=== PATIENT | male | born 1950 | race Caucasian/White ===

== ENCOUNTER 2021-05-13 21:58 | Emergency (ER) | payer OTHER ==
[2021-05-13 22:08] VITALS: BP 136/85; PULSE 82; TEMP 98; BMI 12.0
== END 2021-05-13 23:06 | disposition home or self-care (01) ==
LOC: FER 21:58
DX: K59.00 Constipation, unspecified (principal)
CPT/HCPCS: 74019-TC-FY; 99283-25

== ENCOUNTER 2024-03-10 06:39 | Inpatient (IN) | payer OTHER ==
[2024-03-10 08:14] LABS: BASO % 1.2 % (0-2.0); EOS % 0.7 % (0-4.5); HEMATOCRIT 49.9 % (35.4-49); HEMOGLOBIN 17.8 GM/dL (11.7-16.9); LYMPH % 27.6 % (8-40); MCH 32.8 pg (25.7-33.7); MCHC 35.8 g/dl (32.0-35.9); MEAN CELL VOLUME 91.8 fl (80-96); MONO % 12.1 % (3.8-10.2); NEUT % 58.4 % (42.8-82.8); PLATELET COUNT 201 10^3/uL (134-434); RBC 5.44 M/mm3 (4.00-5.60); RDW 13.5 % (11.9-15.9); WHITE BLOOD COUNT 2.9 K/mm3 (4.0-10.0)
[2024-03-10 08:31] LABS: POTASSIUM 3.8 mmol/L (3.5-5.1)
[2024-03-10 08:33] LABS: CALCIUM 8.7 mg/dL (8.5-10.1)
[2024-03-10 08:34] LABS: ALBUMIN 3.6 g/dl (3.4-5.0); BLOOD UREA NITROGEN 25.4 mg/dL (7-18); MAGNESIUM 1.5 mg/dL (1.8-2.4)
[2024-03-10 08:37] LABS: CREATININE 1.6 mg/dL (0.55-1.3)
[2024-03-10 08:39] LABS: BILIRUBIN,TOTAL 1.6 mg/dL (0.2-1)
[2024-03-10 08:43] LABS: INR 1.84 (0.83-1.09); PROTHROMBIN TIME (PATIENT) 20.8 SEC (9.7-13.0)
[2024-03-10 09:53] LABS: PH,URINE 5.5 (5.0-8.0); URINE APPEARANCE CLEAR; URINE BILIRUBIN NEGATIVE (NEGATIVE); URINE COLOR YELLOW; URINE GLUCOSE (UA) NEGATIVE (NEGATIVE); URINE KETONE NEGATIVE (NEGATIVE); URINE LEUK ESTERASE NEGATIVE (NEGATIVE); URINE NITRITE NEGATIVE (NEGATIVE); URINE PROTEIN NEGATIVE (NEGATIVE)
[2024-03-10 13:26] VITALS: BMI 24.7
[2024-03-10] MEDS: WARFARIN NA 2 MG TABLET PO SCH (17:18)
[2024-03-10] MEDS: MAGNESIUM SULF 50% (8.12 MEQ/2 ML-1 GM VIAL) IVPB ONE (22:34)
[2024-03-10] MEDS: ASPIRIN 81 MG CHEWABLE TABLETS PO SCH (22:38)
[2024-03-10] MEDS: MAGNESIUM 2GM/50ML STERILE WATER IVPB IVPB ONE (22:38)
[2024-03-11 07:10] LABS: PROTHROMBIN TIME (PATIENT) 22.5 SEC (9.7-13.0)
[2024-03-11 07:57] LABS: HEMATOCRIT 48.1 % (35.4-49); HEMOGLOBIN 17.1 GM/dL (11.7-16.9); MCH 32.9 pg (25.7-33.7); MCHC 35.4 g/dl (32.0-35.9); MEAN CELL VOLUME 92.8 fl (80-96); MEAN PLT VOLUME 8.3 fl (7.5-11.1); PLATELET COUNT 185 10^3/uL (134-434); RBC 5.18 M/mm3 (4.00-5.60); RDW 13.4 % (11.9-15.9); WHITE BLOOD COUNT 4.1 K/mm3 (4.0-10.0)
[2024-03-11] MEDS: ATORVASTATIN CA 80 MG TABLET (FP) PO SCH (21:49)
[2024-03-12 08:34] LABS: INR 2.16 (0.83-1.09); PROTHROMBIN TIME (PATIENT) 24.3 SEC (9.7-13.0)
[2024-03-12 08:51] LABS: POTASSIUM 4.3 mmol/L (3.5-5.1)
[2024-03-12 08:59] LABS: CREATININE 1.6 mg/dL (0.55-1.3)
[2024-03-12] MEDS ORDERED: WARFARIN NA 1 MG TABLET PO ONE (17:30)
[2024-03-12] MEDS: WARFARIN NA 2 MG TABLET PO ONE (18:07)
[2024-03-12] MEDS: WARFARIN NA 5 MG TABLET PO SCH (18:08)
[2024-03-12 19:30] LABS: MAGNESIUM 1.9 mg/dL (1.8-2.4)
[2024-03-12 19:34] LABS: PHOSPHOROUS 2.5 mg/dL (2.5-4.9)
[2024-03-13 08:41] LABS: POTASSIUM 4.6 mmol/L (3.5-5.1)
[2024-03-13 08:44] LABS: CALCIUM 8.8 mg/dL (8.5-10.1)
[2024-03-13 08:48] LABS: CREATININE 1.5 mg/dL (0.55-1.3)
[2024-03-13 08:50] LABS: BILIRUBIN,TOTAL 2.1 mg/dL (0.2-1); TOT PROT 6.2 g/dl (6.4-8.2)
[2024-03-13 08:57] LABS: BASO % 0.9 % (0-2.0); EOS % 4.2 % (0-4.5); HEMATOCRIT 48.9 % (35.4-49); LYMPH % 24.2 % (8-40); MCH 32.4 pg (25.7-33.7); MCHC 34.9 g/dl (32.0-35.9); MEAN PLT VOLUME 8.6 fl (7.5-11.1); MONO % 13.8 % (3.8-10.2); NEUT % 56.9 % (42.8-82.8); PLATELET COUNT 180 10^3/uL (134-434); RBC 5.26 M/mm3 (4.00-5.60); RDW 13.4 % (11.9-15.9); WHITE BLOOD COUNT 3.4 K/mm3 (4.0-10.0)
[2024-03-13] MEDS: LOSARTAN POTASSIUM 25 MG TABLET PO SCH (10:53)
[2024-03-13] MEDS: WARFARIN NA 2 MG TABLET PO SCH (17:37)
[2024-03-14 08:14] LABS: BASO % 0.8 % (0-2.0); EOS % 3.7 % (0-4.5); HEMOGLOBIN 16.8 GM/dL (11.7-16.9); LYMPH % 22.6 % (8-40); MCH 32.9 pg (25.7-33.7); MEAN PLT VOLUME 8.4 fl (7.5-11.1); MONO % 12.5 % (3.8-10.2); NEUT % 60.4 % (42.8-82.8); PLATELET COUNT 165 10^3/uL (134-434); RDW 13.1 % (11.9-15.9); WHITE BLOOD COUNT 3.8 K/mm3 (4.0-10.0)
[2024-03-14 08:20] LABS: INR 2.13 (0.83-1.09)
[2024-03-14 08:33] LABS: POTASSIUM 4.5 mmol/L (3.5-5.1)
[2024-03-14 08:36] LABS: BLOOD UREA NITROGEN 29.8 mg/dL (7-18); CALCIUM 8.8 mg/dL (8.5-10.1)
[2024-03-14 08:40] LABS: CREATININE 1.5 mg/dL (0.55-1.3)
[2024-03-14 08:41] LABS: BILIRUBIN,TOTAL 2.1 mg/dL (0.2-1); TOT PROT 6.2 g/dl (6.4-8.2)
[2024-03-14 20:48] LABS: INR 2.05 (0.83-1.09); PROTHROMBIN TIME (PATIENT) 23.1 SEC (9.7-13.0)
[2024-03-15 08:12] LABS: HEMATOCRIT 47.3 % (35.4-49); HEMOGLOBIN 16.9 GM/dL (11.7-16.9); MCH 33.1 pg (25.7-33.7); MCHC 35.7 g/dl (32.0-35.9); MEAN CELL VOLUME 92.9 fl (80-96); MEAN PLT VOLUME 8.6 fl (7.5-11.1); PLATELET COUNT 159 10^3/uL (134-434); RDW 13.5 % (11.9-15.9); WHITE BLOOD COUNT 3.3 K/mm3 (4.0-10.0)
[2024-03-15 08:31] LABS: POTASSIUM 4.5 mmol/L (3.5-5.1)
[2024-03-15 08:33] LABS: CALCIUM 8.4 mg/dL (8.5-10.1)
[2024-03-15 08:34] LABS: BLOOD UREA NITROGEN 32.2 mg/dL (7-18); MAGNESIUM 1.6 mg/dL (1.8-2.4)
[2024-03-15 08:37] LABS: BILIRUBIN,TOTAL 1.9 mg/dL (0.2-1); CREATININE 1.5 mg/dL (0.55-1.3); PHOSPHOROUS 2.1 mg/dL (2.5-4.9)
[2024-03-15 08:39] LABS: TOT PROT 6.1 g/dl (6.4-8.2)
[2024-03-15] MEDS: NAPH,MB-DB/K PH,MBDB POWDER PACKET PO ONE (09:57)
[2024-03-15] MEDS: MAGNESIUM 2GM/50ML STERILE WATER IVPB IVPB ONE (09:57)
[2024-03-15 15:28] LABS: INR 1.95 (0.83-1.09); PROTHROMBIN TIME (PATIENT) 21.6 SEC (9.7-13.0)
[2024-03-16 08:12] VITALS: RESP 20
[2024-03-16 08:29] LABS: BASO % 0.6 % (0-2.0); EOS % 4.1 % (0-4.5); HEMATOCRIT 47.4 % (35.4-49); HEMOGLOBIN 16.2 GM/dL (11.7-16.9); LYMPH % 29.1 % (8-40); MCH 32.2 pg (25.7-33.7); MCHC 34.2 g/dl (32.0-35.9); MEAN CELL VOLUME 93.9 fl (80-96); MEAN PLT VOLUME 8.4 fl (7.5-11.1); MONO % 12.7 % (3.8-10.2); NEUT % 53.5 % (42.8-82.8); PLATELET COUNT 159 10^3/uL (134-434); RBC 5.04 M/mm3 (4.00-5.60); RDW 13.2 % (11.9-15.9); WHITE BLOOD COUNT 3.5 K/mm3 (4.0-10.0)
[2024-03-16 08:37] LABS: POTASSIUM 4.5 mmol/L (3.5-5.1)
[2024-03-16 08:45] LABS: BLOOD UREA NITROGEN 29.2 mg/dL (7-18); PHOSPHOROUS 2.4 mg/dL (2.5-4.9)
[2024-03-16 08:47] LABS: BILIRUBIN,TOTAL 1.8 mg/dL (0.2-1); CALCIUM 8.7 mg/dL (8.5-10.1); MAGNESIUM 1.9 mg/dL (1.8-2.4)
[2024-03-16 08:48] LABS: CREATININE 1.5 mg/dL (0.55-1.3)
[2024-03-16 15:20] VITALS: BP 108/65; PULSE 78; TEMP 98.4
[2024-03-16 16:25] LABS: INR 1.83 (0.83-1.09); PROTHROMBIN TIME (PATIENT) 20.7 SEC (9.7-13.0)
[2024-03-16] MEDS ORDERED: ENOXAPARIN NA (PORCINE) 60 MG/0.6 ML DISP.SYRIN SQ SCH (16:45)
[2024-03-16] MEDS: ENOXAPARIN NA (PORCINE) 80 MG/0.8 ML DISP.SYRIN SQ STA (17:21)
[2024-03-16] MEDS: PNEUMOC 20-VAL CONJ-DIP CRM/PF 0.5 ML SYRINGE IM ONE (17:47)
[2024-03-17] MEDS ORDERED: ASPIRIN COATED 81 MG TABLET.EC PO SCH (10:00)
== END 2024-03-16 18:13 | DRG 65 ==
LOC: JER 06:39 → JERBED 10:30 → J4W 12:41 → OBSVTOIN 03-11 08:46
PROVIDERS: ADMIT Internal Medicine; ATTEND Internal Medicine
DX: I63.89 Other cerebral infarction (principal); D68.59 Other primary thrombophilia; Q61.3 Polycystic kidney, unspecified; I69.354 Hemiplegia and hemiparesis following cerebral infarction affecting left non-dominant side; R29.810 Facial weakness; M54.50 Low back pain, unspecified; G20.C Parkinsonism, unspecified; D45 Polycythemia vera; E78.5 Hyperlipidemia, unspecified; I12.9 Hypertensive chronic kidney disease with stage 1 through stage 4 chronic kidney disease, or unspecified chronic kidney disease; N18.9 Chronic kidney disease, unspecified; Z86.718 Personal history of other venous thrombosis and embolism
CPT/HCPCS: 36415; 70450-TC; 70551-TC; 76882-TC-RT-FY; 80048; 80053; 80061; 81003; 83036; 83735; 84100; 84484; 85025; 85027; 85610; 87086; 93005; 93010; 97116-GP; 97163-GP; 99285-25; G0378